=== PATIENT | female | born 1970 | race Caucasian/White ===

== ENCOUNTER 2016-06-20 19:55 | Emergency (ER) | payer OTHER ==
[~2016-06-20] VITALS: Ht 160 cm; Wt 77.6 kg
[2016-06-20 20:06] VITALS: BP 128/85
--- NOTE | 2016-06-20 20:12 | NUR ---
Patient ambulated to bed 07.
--- NOTE | 2016-06-20 20:15 | NUR ---
45Y F BIB SELF C/O AB PAIN S/P [place]ST[place] [facility] [place] PT DENIES ANY N/V/D AT THE MOMENT. PT DENIES ANY SOB OR DIFF BREATING. 07/22 PAIN. SX TO MID AB BY UMBILICUS. BRUISING SEEN FROM SX, NO DISCHARGE OR FOUL SMELL.
[2016-06-20] MEDS ORDERED: DICYCLOMINE 20 MG/2 ML VIAL IM ONE (20:50)
--- NOTE | 2016-06-20 20:56 | NUR ---
Patient to CT via wheelchair per tech.
--- NOTE | 2016-06-20 21:12 | NUR ---
Patient back from CT via wheelchair per tech.
[2016-06-20 21:48] LABS: ANION GAP 12.8 (8-16); CALCIUM 8.8 mg/dL (8.5-10.1); CARBON DIOXIDE 24.9 mmol/L (21-32); CREATININE 0.9 mg/dL (0.6-1.3); POTASSIUM 4.7 mmol/L (3.5-5.1); TOTAL BILIRUBIN 0.6 mg/dL (0.0-1.0); TOTAL PROTEIN, SERUM 8.1 g/dL (6.4-8.2)
[2016-06-20 22:28] LABS: APPEARANCE,URINE CLOUDY (CLEAR); BILIRUBIN,URINE NEGATIVE (NEGATIVE); BLOOD, URINE 2+ (NEGATIVE); COLOR,URINE YELLOW (YELLOW); LEUKOCYTE ESTERASE ,URINE 3+ (NEGATIVE); NITRITE, URINE NEGATIVE (NEGATIVE); PH,URINE 6.5 (5.0-9.0); PROTEIN,URINE NEGATIVE (NEGATIVE); UGLUCOSE NEGATIVE (NEGATIVE)
[2016-06-20 22:34] LABS: BACTERIA,URINE 2+ /HPF (None Seen); WBC,URINE TOO MANY TO COUNT /HPF (0-5)
[2016-06-20 22:59] VITALS: BP 120/82
--- NOTE | 2016-06-20 22:59 | NUR ---
Patient discharged with v/s stable. Written and verbal after care instructions given and explained. Patient alert, oriented and verbalized understanding of instructions. Ambulatory with steady gait. All questions addressed prior to discharge. ID band removed. Patient advised to follow up with PMD. Rx of FLEET ENEMA, COLACE 100MG AND MACROBID CAP given. Patient educated on indication of medication including possible reaction and side effects. Opportunity to ask questions provided and answered.
== END 2016-06-20 22:59 | disposition home or self-care (01) ==
LOC: MED 19:55
DX: N39.0 Urinary tract infection, site not specified (principal); K59.00 Constipation, unspecified
CPT/HCPCS: 36415; 74176; 80053; 81001; 81025; 83690; 87086; 96372; 99285; J0500

== ENCOUNTER 2016-07-18 18:44 | Emergency (ER) | payer OTHER ==
[~2016-07-18] VITALS: Ht 160 cm; Wt 68.5 kg
[2016-07-18 18:52] VITALS: BP 157/99
--- NOTE | 2016-07-18 21:11 | NUR ---
PT TAKEN TO OF2
--- NOTE | 2016-07-18 21:55 | NUR ---
Darlene marion in [facility] - 07/18/16 at 2223 by MEDRJJ PT REFUSED ALL LAB WORK. SUSHMA HEWITT NOTIFTED
[2016-07-18 22:14] VITALS: BP 142/82
--- NOTE | 2016-07-18 22:15 | NUR ---
Patient discharged with v/s stable. Written and verbal after care instructions given and explained. Patient alert, oriented and verbalized understanding of instructions. Ambulatory with steady gait. All questions addressed prior to discharge. ID band removed. Patient advised to follow up with PMD. Rx of TRAMADOL 50MG given. Patient educated on indication of medication including possible reaction and side effects. Opportunity to ask questions provided and answered.
== END 2016-07-18 22:15 | disposition home or self-care (01) ==
LOC: MED 18:44
DX: R10.9 Unspecified abdominal pain (principal); R07.89 Other chest pain; R03.0 Elevated blood-pressure reading, without diagnosis of hypertension
CPT/HCPCS: 81002; 81025; 99284

== ENCOUNTER 2017-04-05 23:04 | Emergency (ER) | payer OTHER ==
[~2017-04-05] VITALS: Ht 160 cm; Wt 74.5 kg
--- NOTE | 2017-04-05 23:05 | NUR ---
TO ER CHAIR E
[2017-04-05 23:09] VITALS: BP 147/88
--- NOTE | 2017-04-05 23:10 | NUR ---
PATIENT IS A 46 Y/O FEMALE WHO PRESENTS TO THE ED C/O SORE THROAT. PT STATES, "I HAVE BEEN SICK FOR ABOUT 4 DAYS." PT REPORTS 9/10 SHARP THROAT PAIN. PT DENIES CP, SOB, REPORTS NAUSEA/VOMITING/DIARRHEA. PT AAOX4, RR EVEN/UNLABORED. PT REPOSITIONED FOR COMFORT, BED IN LOWEST POSITION. ER MD DR. MICHEL NOTIFIED. WILL CONTINUE TO MONITOR. Addendum: 04/05/17 at 2333 by MEDDCV PATIENT IS A 46 Y/O FEMALE WHO PRESENTS TO THE ED C/O SORE THROAT. PT STATES, "I HAVE BEEN SICK FOR ABOUT 4 DAYS." PT REPORTS 9/10 SHARP THROAT PAIN. PT DENIES CP, SOB, REPORTS NAUSEA/VOMITING/DIARRHEA. PT AAOX4, RR EVEN/UNLABORED. PT REPOSITIONED FOR COMFORT, BED IN LOWEST POSITION. ER MD DR. MICHEL NOTIFIED. WILL CONTINUE TO MONITOR. RX---TOOK 2 ADVIL.
[2017-04-05] MEDS ORDERED: ACETAMINOPHEN EXTRA STRENGTH 500 MG TAB PO ONE (23:40)
[2017-04-06 00:48] VITALS: BP 135/82
--- NOTE | 2017-04-06 00:48 | NUR ---
Patient discharged with v/s stable. Written and verbal after care instructions given and explained. Patient verbalized understanding. Ambulatory with steady gait. All questions addressed prior to discharge. Advised to follow up with PMD.
== END 2017-04-06 00:48 | disposition home or self-care (01) ==
LOC: MED 23:04
DX: J02.8 Acute pharyngitis due to other specified organisms (principal)
CPT/HCPCS: 87081; 99284

== ENCOUNTER 2020-06-21 13:01 | Emergency (ER) | payer MEDICAID, OTHER ==
[~2020-06-21] VITALS: Ht 160 cm; Wt 80.7 kg
[2020-06-21 13:14] VITALS: BP 150/93
--- NOTE | 2020-06-21 13:34 | NUR ---
Patient ambulated to bed 5. RN evaluating the patient at bedside.
--- NOTE | 2020-06-21 13:36 | NUR ---
49 Y/O FEMALE FROM HOME C/O 10/22 NON RADIATING CHEST PAIN X 1 MONTH. PT STATES LEFT SIDED CHEST PAIN. STATES DIZZINESS AND HEADACHE X 2 DAYS. DENIES N/V/D. DENIES CHANGE IN VISION. RR EVEN AND UNLABORED, DENIES SOB. AWAKE AND ALERT. VSS MEDHX: DENIES
--- NOTE | 2020-06-21 14:30 | NUR ---
X-Ray at bedside.
[2020-06-21 14:36] LABS: BASOPHILS % (AUTO) 0.3 % (0.0-2.0); EOSINOPHILS # (AUTO) 0.1 K/uL (0-0.4); EOSINOPHILS % (AUTO) 1.6 % (0.0-4.0); HEMATOCRIT 42.1 % (36-48); HEMOGLOBIN 14.5 g/dL (12.0-16.0); LYMPHOCYTES # (AUTO) 2.9 K/uL (2.5-16.5); LYMPHOCYTES % (AUTO) 41.6 % (20.5-51.1); MEAN CORPUSCULAR HEMOGLOBIN 30 pg (27-31); MEAN CORPUSCULAR HGB CONC 35 g/dL (33-37); MEAN CORPUSCULAR VOLUME 87.4 fL (80-94); MONOCYTES # (AUTO) 0.4 K/uL (0.8-1.0); MONOCYTES % (AUTO) 5.4 % (1.7-9.3); NEUTROPHILS # (AUTO) 3.5 K/uL (1.8-7.7); NEUTROPHILS % (AUTO) 51.1 % (42.2-75.2); PLATELET COUNT (AUTO) 218 K/uL (140-450); RED BLOOD CELL COUNT(AUTO) 4.81 MIL/uL (4.20-5.40); RED CELL DISTRIBUTION WIDTH 13.1 % (11.6-13.7); WHITE BLOOD COUNT (AUTO) 6.9 K/uL (4.8-10.8)
[2020-06-21 14:55] LABS: ALBUMIN 4.3 g/dL (3.4-5.0); ANION GAP 14.3 (8-16); CARBON DIOXIDE 24.8 mmol/L (21-32); CREATININE 0.8 mg/dL (0.6-1.3); POTASSIUM 5.1 mmol/L (3.5-5.1); TOTAL BILIRUBIN 0.4 mg/dL (0.0-1.0)
--- NOTE | 2020-06-21 15:28 | NUR ---
Pt sitting in a chair. Vital Signs within normal limits. Respirations even and unlabored. no signs of acute distress.
--- NOTE | 2020-06-21 15:36 | NUR ---
bp done on bilateral arms due to inequal readings. left arm bp: 131/101 and right arm bp: 139/94
--- NOTE | 2020-06-21 16:12 | NUR ---
USMAN Kerr is reevaluating the patient at bedside.
[2020-06-21] MEDS ORDERED: CYCL-711 PO (16:19)
[2020-06-21 16:34] VITALS: BP 139/101
--- NOTE | 2020-06-21 16:35 | NUR ---
Patient discharged with v/s stable. Written and verbal after care instructions given and explained. Patient alert, oriented and verbalized understanding of instructions. Ambulatory with steady gait. All questions addressed prior to discharge. ID band removed. Patient advised to follow up with PMD. Rx of FLEXERIL given. Patient educated on indication of medication including possible reaction and side effects. Opportunity to ask questions provided and answered.
== END 2020-06-21 16:35 | disposition home or self-care (01) ==
LOC: MED 13:01
DX: R07.2 Precordial pain (principal); R03.0 Elevated blood-pressure reading, without diagnosis of hypertension; Z79.899 Other long term (current) drug therapy
CPT/HCPCS: 36415; 71045; 80053; 84484; 85025; 93005; 99285